=== PATIENT | female | born 1965 | race African-American/Black ===

== ENCOUNTER 2016-11-13 14:53 | Emergency (ER) | payer MEDICAID, OTHER ==
[~2016-11-13] VITALS: Ht 160 cm; Wt 85.0 kg
[2016-11-13 15:03] VITALS: BP 133/73
[2016-11-13] MEDS ORDERED: MAGNESIUM/ALUMINUM HYDROXIDE/SIMETHICONE 30ML UDC PO STA (17:04)
[2016-11-13] MEDS ORDERED: ONDANSETRON 4MG ODT PO ONE (17:15)
== END 2016-11-13 17:49 | disposition home or self-care (01) ==
LOC: ER 16:25
DX: A08.4 Viral intestinal infection, unspecified (principal)
CPT/HCPCS: 99283; Q0162

== ENCOUNTER 2017-03-08 08:49 | Inpatient (IN) | payer OTHER ==
[~2017-03-08] VITALS: Ht 160 cm; Wt 88.0 kg
[2017-03-08] MEDS ORDERED: LISI10TA5 PO (09:02)
[2017-03-08] MEDS ORDERED: LORAZEPAM 2MG/ML CPJ IV ONE (09:15)
[2017-03-08] MEDS ORDERED: LORAZEPAM 2MG/ML CPJ ONE (09:22)
[2017-03-08] MEDS ORDERED: ACETAMINOPHEN 325MG TABLET PO ONE (09:45)
[2017-03-08 10:13] LABS: BASOPHILS % 0.8 % (0.0-2.0); HEMATOCRIT. 34.7 % (36.0-48.0); HEMOGLOBIN. 11.1 g/dL (12.0-16.0); LYMPHOCYTES % 22.5 % (20.0-50.0); MEAN CORPUSCULAR HEMOGLOBIN 24.8 pg (28.0-32.0); MEAN CORPUSCULAR VOLUME 77.3 fL (81.0-99.0); MEAN PLATELET VOLUME 7.8 fl (7.4-10.4); MONOCYTES % 7.5 % (2.0-8.0); NEUTROPHILS % 64.2 % (40.0-76.0); PLATELET 271 x1000/uL (130-400); RED BLOOD CELL COUNT 4.49 mill/uL (4.2-5.4); RED CELL DISTRIBUTION WIDTH 23.1 % (11.6-14.6)
[2017-03-08 10:22] LABS: HCG SCREEN NEGATIVE
[2017-03-08 10:23] LABS: PROTHROMBIN TIME 10.6 sec (9.4-11.6)
[2017-03-08 10:31] LABS: CARBON DIOXIDE 27 mEq/L (21-32); CHLORIDE 108 mEq/L (98-107); TROPONIN I < 0.02 ng/mL (0.00-0.04)
[2017-03-08] MEDS ORDERED: METOCLOPRAMIDE HCL 10MG/2ML VIAL IV ONE (10:45)
[2017-03-08] MEDS ORDERED: KETOROLAC 30MG/ML VIAL IV ONE (10:45)
[2017-03-08] MEDS ORDERED: PHENYTOIN SODIUM 1,000 MG in SODIUM CHLORIDE 0.9% 100 ML IV ONE ×2 (11:00→12:30)
[2017-03-08 11:36] LABS: PLATELET ESTIMATE NORMAL
[2017-03-08 15:11] VITALS: BP 107/64
[2017-03-08] MEDS ORDERED: FERR-71 PO (15:35)
[2017-03-08] MEDS ORDERED: MULT-1146 PO (15:36)
[2017-03-08] MEDS ORDERED: PHEN-434 PO (15:36)
[2017-03-08] MEDS ORDERED: ONDANSETRON HCL 4MG/2ML VIAL IV PRN (16:15)
[2017-03-08] MEDS: SODIUM CHLORIDE 0.9% 1,000 ML IV SCH (17:55)
[2017-03-08] MEDS ORDERED: LORAZEPAM 2MG/ML CPJ IV PRN (19:45)
[2017-03-08 20:00] VITALS: BP 113/63
[2017-03-09] VITALS: BP 142/79
[2017-03-09 04:00] VITALS: BP 113/69
[2017-03-09 06:42] LABS: BASOPHILS % 0.9 % (0.0-2.0); HEMATOCRIT. 32.5 % (36.0-48.0); HEMOGLOBIN. 10.3 g/dL (12.0-16.0); LYMPHOCYTES % 39.5 % (20.0-50.0); MEAN CORPUSCULAR HEMOGLOBIN 24.5 pg (28.0-32.0); MEAN CORPUSCULAR VOLUME 77.3 fL (81.0-99.0); MEAN PLATELET VOLUME 8.4 fl (7.4-10.4); MONOCYTES % 10.2 % (2.0-8.0); NEUTROPHILS % 44.4 % (40.0-76.0); PLATELET 253 x1000/uL (130-400); RED CELL DISTRIBUTION WIDTH 22.3 % (11.6-14.6)
[2017-03-09 07:52] LABS: CARBON DIOXIDE 26 mEq/L (21-32); CHLORIDE 107 mEq/L (98-107)
[2017-03-09 07:59] VITALS: BP 113/77
[2017-03-09 09:10] LABS: *AMPHETAMINES SCREEN URINE NEGATIVE (NEGATIVE); *BARBITURATES SCREEN URINE NEGATIVE (NEGATIVE); *BENZODIAZEPINES SCREEN URINE NEGATIVE (NEGATIVE); *COCAINE SCREEN URINE NEGATIVE (NEGATIVE); CANNABINOID URINE SCREEN PRESUMTIVE POSITIVE (NEGATIVE); METHADONE URINE SCREEN NEGATIVE (NEGATIVE); OPIATES URINE SCREEN NEGATIVE (NEGATIVE); PHENCYCLIDINE URINE SCREEN NEGATIVE (NEGATIVE)
[2017-03-09] MEDS ORDERED: PHENYTOIN SODIUM 700 MG in SODIUM CHLORIDE 0.9% 100 ML IV NR (11:00)
[2017-03-09 12:14] VITALS: BP 117/66
[2017-03-09] MEDS: SODIUM CHLORIDE 0.9% 1,000 ML IV SCH (12:30)
[2017-03-09 16:30] VITALS: BP 112/64
[2017-03-09 20:00] VITALS: BP 117/74
[2017-03-10] VITALS: BP 120/70
[2017-03-10] MEDS ORDERED: ACETAMINOPHEN 325MG TABLET PO PRN (01:45)
[2017-03-10] MEDS ORDERED: MORPHINE SULFATE 4 MG/ML CPJ (NOT FOR IM USE) IV PRN (01:45)
[2017-03-10] MEDS: HYDROCODONE/ACETAMINOPHEN 5/325MG TABLET PO PRN ×3 (02:00→22:30)
[2017-03-10 04:00] VITALS: BP 100/54
[2017-03-10 08:00] VITALS: BP 100/62
[2017-03-10] MEDS: SODIUM CHLORIDE 0.9% 1,000 ML IV SCH (09:20)
[2017-03-10] MEDS ORDERED: GADOBENATE DIMEGLUMINE 529 MG/ML 10ML IV ONE (11:47)
[2017-03-10 12:00] VITALS: BP 110/71
[2017-03-10 16:00] VITALS: BP 115/71
[2017-03-10 20:00] VITALS: BP 114/54
[2017-03-10] MEDS ORDERED: PHENYTOIN SODIUM EXTENDED 100MG CAPSULE PO SCH (21:00)
[2017-03-11] VITALS: BP 114/54
[2017-03-11 04:00] VITALS: BP 106/66
[2017-03-11 08:00] VITALS: BP 143/77
[2017-03-11] MEDS: HYDROCODONE/ACETAMINOPHEN 5/325MG TABLET PO PRN (08:02)
[2017-03-11 09:23] VITALS: BP 143/77
[2017-03-11] MEDS ORDERED: IOHEXOL-350 100 ML BOTTLE ONE (11:27)
[2017-03-11] MEDS ORDERED: SODIUM CHLORIDE 0.9% 10ML VIAL ONE (11:27)
[2017-03-11 12:00] VITALS: BP 112/58
== END 2017-03-11 16:35 | disposition home or self-care (01) | DRG 53 ==
LOC: ER 08:49 → 5WST 11:36 → ENRESERV 13:27 → CANRESERV 13:27 → ENRESERV 13:45 → SUPCPDRO 16:08
PROVIDERS: ADMIT Family Medicine Adult Medicine; ATTEND Family Medicine Adult Medicine
DX: G40.802 Other epilepsy, not intractable, without status epilepticus (principal); G93.6 Cerebral edema; I10 Essential (primary) hypertension; D64.9 Anemia, unspecified; F12.90 Cannabis use, unspecified, uncomplicated; H53.40 Unspecified visual field defects; G93.9 Disorder of brain, unspecified; Z91.14 Patient's other noncompliance with medication regimen; Z91.19 Patient's noncompliance with other medical treatment and regimen; Z86.73 Personal history of transient ischemic attack (TIA), and cerebral infarction without residual deficits; Z79.899 Other long term (current) drug therapy; Z72.89 Other problems related to lifestyle; E83.51 Hypocalcemia
CPT/HCPCS: 36415; 70450; 70496; 70551; 70552; 71010; 80053; 80185; 80305; 83880; 84484; 84703; 85025; 85610; 93005; 96365; 96375; 99285; A4216; A9577; G0482; J1165; J1885; J2060; J2405; J2765; J7030; J7050; Q9967

== ENCOUNTER 2017-07-10 19:44 | Emergency (ER) | payer MEDICAID, OTHER ==
[~2017-07-10] VITALS: Ht 172.7 cm; Wt 100.0 kg
[~2017-07-10 19:44] MED LIST: FERR-71 PO; LISI10TA5 PO; MULT-1146 PO
[2017-07-10] MEDS ORDERED: SODIUM CHLORIDE 0.9% 1,000 ML IV ONE (20:24)
[2017-07-10] MEDS ORDERED: LORAZEPAM 1MG TABLET PO ONE (20:30)
[2017-07-10 20:45] LABS: EOSINOPHILS % 2.9 % (0.0-5.0); HEMATOCRIT. 36.1 % (36.0-48.0); HEMOGLOBIN. 11.6 g/dL (12.0-16.0); LYMPHOCYTES % 40.1 % (20.0-50.0); MEAN CORPUSCULAR HEMOGLOBIN 28.2 pg (28.0-32.0); MEAN CORPUSCULAR VOLUME 88.1 fL (81.0-99.0); MEAN PLATELET VOLUME 7.9 fl (7.4-10.4); PLATELET 287 x1000/uL (130-400); RED CELL DISTRIBUTION WIDTH 15.6 % (11.6-14.6)
[2017-07-10 20:50] LABS: PROTHROMBIN TIME 10.6 sec (9.4-11.6)
[2017-07-10 20:57] LABS: CARBON DIOXIDE 26 mEq/L (21-32); CHLORIDE 108 mEq/L (98-107); ETHANOL BLOOD < 10 mg/dL
[2017-07-10 21:07] LABS: CLARITY URINE TURBID (CLEAR); COLOR URINE RED (YELLOW); KETONES URINE NEGATIVE (NEGATIVE); LEUKOCYTE ESTERASE URINE 2+ (NEGATIVE); NITRITE URINE POSITIVE (NEGATIVE); OCCULT BLOOD URINE 3+ (NEGATIVE); PH URINE 6.5 (4.5-8.0); PROTEIN URINE 2+ (NEGATIVE); SPECIFIC GRAVITY URINE 1.024 (1.005-1.030); UROBILINOGEN URINE 0.2 E.U./dL (0.2-1.0)
[2017-07-10 21:31] LABS: *AMPHETAMINES SCREEN URINE NEGATIVE (NEGATIVE); *BARBITURATES SCREEN URINE NEGATIVE (NEGATIVE); *BENZODIAZEPINES SCREEN URINE NEGATIVE (NEGATIVE); *COCAINE SCREEN URINE NEGATIVE (NEGATIVE); CANNABINOID URINE SCREEN PRESUMTIVE POSITIVE (NEGATIVE); METHADONE URINE SCREEN NEGATIVE (NEGATIVE); OPIATES URINE SCREEN NEGATIVE (NEGATIVE); PHENCYCLIDINE URINE SCREEN NEGATIVE (NEGATIVE)
[2017-07-10] MEDS ORDERED: CEFTRIAXONE 1 G PREMIX 50 ML IV ONE (23:15)
[2017-07-10] MEDS ORDERED: PHENYTOIN SODIUM 1,000 MG in SODIUM CHLORIDE 0.9% 100 ML IV ONE (23:45)
[2017-07-11 01:58] VITALS: BP 111/63
== END 2017-07-11 01:58 | disposition home or self-care (01) ==
LOC: ER 19:59
DX: N30.00 Acute cystitis without hematuria (principal); R51 Headache; I10 Essential (primary) hypertension; F12.10 Cannabis abuse, uncomplicated; G40.909 Epilepsy, unspecified, not intractable, without status epilepticus; Z86.73 Personal history of transient ischemic attack (TIA), and cerebral infarction without residual deficits
CPT/HCPCS: 36415; 70450; 80053; 80185; 80305; 81001; 85025; 85610; 87077; 87086; 96361; 96365; 96367; 99285; G0482; J0696; J1165; J7030; J7050

== ENCOUNTER 2017-08-28 13:01 | Emergency (ER) | payer MEDICAID, OTHER ==
[~2017-08-28] VITALS: Ht 167.6 cm; Wt 79.0 kg
[2017-08-28] MEDS ORDERED: PHEN100C4 PO (13:08)
[2017-08-28 17:41] VITALS: BP 165/93
== END 2017-08-28 19:07 | disposition home or self-care (01) ==
LOC: ER 14:51
DX: M25.561 Pain in right knee (principal); R51 Headache; G40.909 Epilepsy, unspecified, not intractable, without status epilepticus; Z98.890 Other specified postprocedural states
CPT/HCPCS: 99282

== ENCOUNTER 2017-10-11 16:51 | Emergency (ER) | payer OTHER ==
[~2017-10-11] VITALS: Ht 167.6 cm; Wt 80.0 kg
[~2017-10-11 16:51] MED LIST changes: +PHEN100C4 PO
[2017-10-11 18:58] LABS: BASOPHILS % 0.4 % (0.0-2.0); EOSINOPHILS % 1.2 % (0.0-5.0); HEMATOCRIT. 34.6 % (36.0-48.0); HEMOGLOBIN. 11.2 g/dL (12.0-16.0); LYMPHOCYTES % 18.5 % (20.0-50.0); MEAN CORPUSCULAR HEMOGLOBIN 27.6 pg (28.0-32.0); MEAN CORPUSCULAR VOLUME 85.3 fL (81.0-99.0); MEAN PLATELET VOLUME 8.3 fl (7.4-10.4); MONOCYTES % 7.4 % (2.0-8.0); NEUTROPHILS % 72.5 % (40.0-76.0); PLATELET 298 x1000/uL (130-400); RED BLOOD CELL COUNT 4.05 mill/uL (4.2-5.4)
[2017-10-11 19:00] LABS: CHLORIDE 110 mEq/L (98-107)
[2017-10-11 19:04] LABS: AMMONIA 63 uMol/L (<32); ETHANOL BLOOD < 10 mg/dL
[2017-10-11 20:18] LABS: CLARITY URINE CLEAR (CLEAR); COLOR URINE PALE YELLOW (YELLOW); KETONES URINE NEGATIVE (NEGATIVE); LEUKOCYTE ESTERASE URINE NEGATIVE (NEGATIVE); NITRITE URINE NEGATIVE (NEGATIVE); OCCULT BLOOD URINE NEGATIVE (NEGATIVE); PH URINE 5.5 (4.5-8.0); PROTEIN URINE NEGATIVE (NEGATIVE); UROBILINOGEN URINE 0.2 E.U./dL (0.2-1.0)
[2017-10-11 20:23] LABS: *AMPHETAMINES SCREEN URINE NEGATIVE (NEGATIVE); *BARBITURATES SCREEN URINE NEGATIVE (NEGATIVE); *BENZODIAZEPINES SCREEN URINE NEGATIVE (NEGATIVE); *COCAINE SCREEN URINE NEGATIVE (NEGATIVE); METHADONE URINE SCREEN NEGATIVE (NEGATIVE)
[2017-10-11 20:24] LABS: CANNABINOID URINE SCREEN PRESUMTIVE POSITIVE (NEGATIVE); OPIATES URINE SCREEN NEGATIVE (NEGATIVE); PHENCYCLIDINE URINE SCREEN NEGATIVE (NEGATIVE)
[2017-10-11 21:00] LABS: BG BASE EXCESS -3.6 mmol/L (-2.0-2.0); BG BILEVEL POS AIRWAY PRESSURE 37; BG CARBOXYHEMOGLOBIN 0.2 % (0.5-1.5); BG DEOXYHEMOGLOBIN 1.1 % (0.0-5.0); BG FRACTION INSPIRED OXYGEN 28; BG HCO3 ACT 22.1 mmol/L (22.0-26.0); BG METHEMOGLOBIN 0.3 % (0.0-1.5); BG OXYGEN SATURATION 98.9 % (92.0-98.5); BG OXYHEMOGLOBIN 98.4 % (94.0-97.0); BG PCO2 42.4 mmHg (35.0-45.0); BG PH 7.335 (7.350-7.450); BG PO2 168.4 mmHg (75.0-100.0); BG SAMPLE SITE RIGHT RADIAL; BG TOTAL HEMOGLOBIN 11.7 g/dL (12.0-18.0); BG VENT MODE NASAL CANNULA
[2017-10-12 02:06] VITALS: BP 129/65
== END 2017-10-12 02:08 | disposition home or self-care (01) ==
LOC: ER 16:51
DX: R56.9 Unspecified convulsions (principal); G93.40 Encephalopathy, unspecified; I10 Essential (primary) hypertension
CPT/HCPCS: 36415; 36600; 70450; 71045; 80053; 80185; 80305; 80307; 80329; 81003; 81025; 82140; 82375; 82805; 85025; 99285; G0482; Z7610

== ENCOUNTER 2018-02-10 07:19 | Emergency (ER) | payer OTHER ==
[~2018-02-10] VITALS: Ht 165.1 cm; Wt 60.0 kg
[~2018-02-10 07:19] MED LIST changes: -LISI10TA5 PO; -PHEN100C4 PO
[2018-02-10] MEDS ORDERED: SODIUM CHLORIDE 0.9% 1,000 ML IV ONE (07:55)
[2018-02-10 08:10] LABS: BASOPHILS % 1.3 % (0.0-2.0); EOSINOPHILS % 2.5 % (0.0-5.0); HEMATOCRIT. 36.1 % (36.0-48.0); HEMOGLOBIN. 11.9 g/dL (12.0-16.0); LYMPHOCYTES % 38.9 % (20.0-50.0); MEAN CORPUSCULAR HEMOGLOBIN 26.8 pg (28.0-32.0); MEAN CORPUSCULAR VOLUME 81.4 fL (81.0-99.0); MEAN PLATELET VOLUME 8.6 fl (7.4-10.4); MONOCYTES % 9.1 % (2.0-8.0); NEUTROPHILS % 48.2 % (40.0-76.0); PLATELET 240 x1000/uL (130-400); RED BLOOD CELL COUNT 4.44 mill/uL (4.2-5.4); RED CELL DISTRIBUTION WIDTH 18.7 % (11.6-14.6)
[2018-02-10 08:16] LABS: CHLORIDE 108 mEq/L (98-107)
[2018-02-10 08:24] LABS: HCG SCREEN NEGATIVE
[2018-02-10] MEDS ORDERED: ONDANSETRON HCL 4MG/2ML VIAL IV ONE (09:15)
[2018-02-10] MEDS ORDERED: PHENYTOIN SODIUM 1,000 MG in SODIUM CHLORIDE 0.9% 100 ML IV ONE (09:15)
[2018-02-10] MEDS ORDERED: ACETAMINOPHEN 325MG TABLET PO ONE (09:15)
[2018-02-10] MEDS ORDERED: PHENYTOIN SODIUM EXTENDED 100MG CAPSULE PO ONE (10:00)
[2018-02-10 11:09] VITALS: BP 135/86
== END 2018-02-10 11:12 | disposition home or self-care (01) ==
LOC: ER 07:19
DX: R56.9 Unspecified convulsions (principal); I10 Essential (primary) hypertension; R89.2 Abnormal level of other drugs, medicaments and biological substances in specimens from other organs, systems and tissues; R51 Headache; Z98.890 Other specified postprocedural states
CPT/HCPCS: 36415; 80053; 80185; 84703; 85025; 96374; 99284; J1165; J2405; J7030; J7050

== ENCOUNTER 2018-02-20 03:07 | Emergency (ER) | payer OTHER ==
[~2018-02-20] VITALS: Ht 167.6 cm; Wt 82.0 kg
[2018-02-20] MEDS ORDERED: ACETAMINOPHEN 500MG TABLET PO ONE (06:30)
[2018-02-20] MEDS ORDERED: ONDANSETRON 4MG ODT PO ONE (06:30)
[2018-02-20 06:46] LABS: CLARITY URINE CLEAR (CLEAR); COLOR URINE YELLOW (YELLOW); KETONES URINE TRACE (NEGATIVE); LEUKOCYTE ESTERASE URINE NEGATIVE (NEGATIVE); NITRITE URINE NEGATIVE (NEGATIVE); OCCULT BLOOD URINE 1+ (NEGATIVE); PH URINE 6.5 (4.5-8.0); PROTEIN URINE NEGATIVE (NEGATIVE); SPECIFIC GRAVITY URINE 1.023 (1.005-1.030); UROBILINOGEN URINE 0.2 E.U./dL (0.2-1.0)
[2018-02-20 06:55] LABS: *AMPHETAMINES SCREEN URINE NEGATIVE (NEGATIVE); *BARBITURATES SCREEN URINE NEGATIVE (NEGATIVE); *BENZODIAZEPINES SCREEN URINE NEGATIVE (NEGATIVE); *COCAINE SCREEN URINE NEGATIVE (NEGATIVE); METHADONE URINE SCREEN NEGATIVE (NEGATIVE); OPIATES URINE SCREEN NEGATIVE (NEGATIVE)
[2018-02-20 06:56] LABS: CANNABINOID URINE SCREEN PRESUMTIVE POSITIVE (NEGATIVE); PHENCYCLIDINE URINE SCREEN NEGATIVE (NEGATIVE)
[2018-02-20 07:48] LABS: BASOPHILS % 0.2 % (0.0-2.0); HEMATOCRIT. 38.3 % (36.0-48.0); HEMOGLOBIN. 12.4 g/dL (12.0-16.0); MEAN CORPUSCULAR HEMOGLOBIN 26.3 pg (28.0-32.0); MEAN CORPUSCULAR VOLUME 81.4 fL (81.0-99.0); MEAN PLATELET VOLUME 8.2 fl (7.4-10.4); MONOCYTES % 7.9 % (2.0-8.0); NEUTROPHILS % 80.9 % (40.0-76.0); PLATELET 254 x1000/uL (130-400); RED BLOOD CELL COUNT 4.71 mill/uL (4.2-5.4); RED CELL DISTRIBUTION WIDTH 18.5 % (11.6-14.6)
[2018-02-20 07:52] LABS: CHLORIDE 105 mEq/L (98-107)
[2018-02-20 07:58] LABS: ETHANOL BLOOD < 10 mg/dL
[2018-02-20] MEDS ORDERED: PHENYTOIN SODIUM EXTENDED 100MG CAPSULE PO ONE (08:30)
[2018-02-20] MEDS ORDERED: MECLIZINE 25MG TABLET PO ONE (08:30)
[2018-02-20] MEDS ORDERED: KETOROLAC 60MG/2ML VIAL IM ONE (09:00)
[2018-02-20 09:10] VITALS: BP 131/76
== END 2018-02-20 09:26 | disposition home or self-care (01) ==
LOC: ER 03:07
DX: R51 Headache (principal); G40.909 Epilepsy, unspecified, not intractable, without status epilepticus; I10 Essential (primary) hypertension; F43.9 Reaction to severe stress, unspecified; F12.90 Cannabis use, unspecified, uncomplicated; F10.21 Alcohol dependence, in remission; Z79.899 Other long term (current) drug therapy
CPT/HCPCS: 36415; 80053; 80185; 80305; 81003; 81025; 85025; 96372; 99284; G0482; J1885; Q0162; Z7610; J8597

== ENCOUNTER 2018-05-06 08:31 | Emergency (ER) | payer MEDICAID, OTHER ==
[~2018-05-06] VITALS: Ht 160 cm; Wt 82.0 kg
[2018-05-06] MEDS ORDERED: PHENYTOIN SODIUM EXTENDED 100MG CAPSULE PO ONE (11:30)
[2018-05-06] MEDS ORDERED: PROCHLORPERAZINE 10MG/2ML VIAL IV ONE (11:45)
[2018-05-06] MEDS ORDERED: DIPHENHYDRAMINE 50MG/ML VIAL IV ONE (11:45)
[2018-05-06 12:16] LABS: BASOPHILS % 0.7 % (0.0-2.0); EOSINOPHILS % 1.3 % (0.0-5.0); HEMATOCRIT. 35.7 % (36.0-48.0); HEMOGLOBIN. 11.7 g/dL (12.0-16.0); LYMPHOCYTES % 37.6 % (20.0-50.0); MEAN CORPUSCULAR VOLUME 85.3 fL (81.0-99.0); MEAN PLATELET VOLUME 8.9 fl (7.4-10.4); MONOCYTES % 8.2 % (2.0-8.0); NEUTROPHILS % 52.2 % (40.0-76.0); PLATELET 280 x1000/uL (130-400); RED BLOOD CELL COUNT 4.18 mill/uL (4.2-5.4)
[2018-05-06 12:21] LABS: CHLORIDE 106 mEq/L (98-107)
[2018-05-06 12:22] LABS: CLARITY URINE CLEAR (CLEAR); COLOR URINE YELLOW (YELLOW); KETONES URINE TRACE (NEGATIVE); LEUKOCYTE ESTERASE URINE NEGATIVE (NEGATIVE); NITRITE URINE NEGATIVE (NEGATIVE); OCCULT BLOOD URINE NEGATIVE (NEGATIVE); PH URINE 5.5 (4.5-8.0); PROTEIN URINE NEGATIVE (NEGATIVE); SPECIFIC GRAVITY URINE 1.013 (1.005-1.030); UROBILINOGEN URINE 0.2 E.U./dL (0.2-1.0)
[2018-05-06 12:25] LABS: ETHANOL BLOOD < 10 mg/dL
[2018-05-06 13:30] LABS: *AMPHETAMINES SCREEN URINE NEGATIVE (NEGATIVE); *BARBITURATES SCREEN URINE NEGATIVE (NEGATIVE); CANNABINOID URINE SCREEN PRESUMTIVE POSITIVE (NEGATIVE)
[2018-05-06 13:31] LABS: *BENZODIAZEPINES SCREEN URINE NEGATIVE (NEGATIVE); METHADONE URINE SCREEN NEGATIVE (NEGATIVE); OPIATES URINE SCREEN NEGATIVE (NEGATIVE); PHENCYCLIDINE URINE SCREEN NEGATIVE (NEGATIVE)
[2018-05-06 13:39] LABS: *COCAINE SCREEN URINE NEGATIVE (NEGATIVE)
[2018-05-06 15:17] VITALS: BP 106/66
== END 2018-05-06 15:20 | disposition home or self-care (01) ==
LOC: ER 12:14
DX: G40.909 Epilepsy, unspecified, not intractable, without status epilepticus (principal); F41.9 Anxiety disorder, unspecified; I10 Essential (primary) hypertension; G43.909 Migraine, unspecified, not intractable, without status migrainosus; Z98.890 Other specified postprocedural states
CPT/HCPCS: 36415; 80053; 80185; 80305; 81003; 85025; 96374; 96375; 99283; G0482; J0780; J1200

== ENCOUNTER 2018-08-17 20:51 | Emergency (ER) | payer MEDICAID, OTHER ==
[~2018-08-17] VITALS: Ht 160 cm; Wt 83.0 kg
[2018-08-17] MEDS ORDERED: SODIUM CHLORIDE 0.9% 1,000 ML IV ONE (22:09)
[2018-08-17] MEDS ORDERED: LEVETIRACETAM 1000MG/100ML 100 ML IV ONE (22:15)
[2018-08-17 22:49] LABS: CLARITY URINE CLEAR (CLEAR); COLOR URINE YELLOW (YELLOW); KETONES URINE TRACE (NEGATIVE); LEUKOCYTE ESTERASE URINE NEGATIVE (NEGATIVE); NITRITE URINE NEGATIVE (NEGATIVE); OCCULT BLOOD URINE NEGATIVE (NEGATIVE); PH URINE 5.5 (4.5-8.0); PROTEIN URINE NEGATIVE (NEGATIVE); SPECIFIC GRAVITY URINE 1.009 (1.005-1.030); UROBILINOGEN URINE 0.2 E.U./dL (0.2-1.0)
[2018-08-17 23:00] LABS: BASOPHILS % 0.7 % (0.0-2.0); EOSINOPHILS % 0.3 % (0.0-5.0); HEMATOCRIT. 37.6 % (36.0-48.0); HEMOGLOBIN. 12.2 g/dL (12.0-16.0); LYMPHOCYTES % 23.5 % (20.0-50.0); MEAN CORPUSCULAR HEMOGLOBIN 27.3 pg (28.0-32.0); MEAN CORPUSCULAR VOLUME 84.1 fL (81.0-99.0); MEAN PLATELET VOLUME 8.2 fl (7.4-10.4); MONOCYTES % 9.8 % (2.0-8.0); NEUTROPHILS % 65.7 % (40.0-76.0); PLATELET 251 x1000/uL (130-400); RED BLOOD CELL COUNT 4.47 mill/uL (4.2-5.4); RED CELL DISTRIBUTION WIDTH 16.4 % (11.6-14.6)
[2018-08-17 23:00] LABS: *BARBITURATES SCREEN URINE NEGATIVE (NEGATIVE); *BENZODIAZEPINES SCREEN URINE NEGATIVE (NEGATIVE); *COCAINE SCREEN URINE NEGATIVE (NEGATIVE)
[2018-08-17 23:01] LABS: *AMPHETAMINES SCREEN URINE NEGATIVE (NEGATIVE); CANNABINOID URINE SCREEN PRESUMTIVE POSITIVE (NEGATIVE); METHADONE URINE SCREEN NEGATIVE (NEGATIVE); OPIATES URINE SCREEN NEGATIVE (NEGATIVE); PHENCYCLIDINE URINE SCREEN NEGATIVE (NEGATIVE)
[2018-08-17 23:03] LABS: CHLORIDE 107 mEq/L (98-107)
[2018-08-17 23:08] LABS: ETHANOL BLOOD < 10 mg/dL
[2018-08-18] MEDS ORDERED: KETOROLAC 30MG/ML VIAL IV NR (00:45)
[2018-08-18 02:47] VITALS: BP 102/56
== END 2018-08-18 02:50 | disposition home or self-care (01) ==
LOC: ER 20:51
DX: G40.909 Epilepsy, unspecified, not intractable, without status epilepticus (principal); R51 Headache; F12.10 Cannabis abuse, uncomplicated; Z98.890 Other specified postprocedural states
CPT/HCPCS: 36415; 80053; 80305; 80320; 81003; 81025; 85025; 96365; 96366; 96375; 99283; J1885; J1953; J7030; Z7610; G0480

== ENCOUNTER 2018-09-28 09:40 | Emergency (ER) | payer MEDICAID ==
[~2018-09-28] VITALS: Ht 167.6 cm; Wt 91.0 kg
[2018-09-28] MEDS ORDERED: PHENYTOIN SODIUM 100MG/2ML VIAL IV ONE (10:45)
[2018-09-28] MEDS ORDERED: KETOROLAC 30MG/ML VIAL IV ONE (10:45)
[2018-09-28] MEDS ORDERED: PHENYTOIN SODIUM 500MG in SODIUM CHLORIDE 0.9% 50ML IV NR (11:15)
[2018-09-28 11:56] LABS: BASOPHILS % 0.8 % (0.0-2.0); EOSINOPHILS % 0.6 % (0.0-5.0); HEMATOCRIT. 38.2 % (36.0-48.0); HEMOGLOBIN. 12.2 g/dL (12.0-16.0); MEAN CORPUSCULAR HEMOGLOBIN 27.5 pg (28.0-32.0); MEAN CORPUSCULAR VOLUME 85.9 fL (81.0-99.0); MEAN PLATELET VOLUME 8.8 fl (7.4-10.4); MONOCYTES % 8.6 % (2.0-8.0); PLATELET 208 x1000/uL (130-400); RED BLOOD CELL COUNT 4.45 mill/uL (4.2-5.4); RED CELL DISTRIBUTION WIDTH 16.3 % (11.6-14.6)
[2018-09-28 12:01] LABS: CHLORIDE 112 mEq/L (98-107)
[2018-09-28 13:36] VITALS: BP 91/48
== END 2018-09-28 14:08 | disposition home or self-care (01) ==
LOC: ER 09:40
DX: G40.909 Epilepsy, unspecified, not intractable, without status epilepticus (principal); F12.10 Cannabis abuse, uncomplicated
CPT/HCPCS: 36415; 80048; 80185; 85025; 96365; 96375; 99283; J1165; J1885

== ENCOUNTER 2019-03-27 07:25 | Emergency (ER) | payer MEDICAID ==
[~2019-03-27] VITALS: Ht 160 cm; Wt 82.0 kg
[2019-03-27] MEDS ORDERED: ACETAMINOPHEN 325MG TABLET PO ONE (08:15)
[2019-03-27] MEDS ORDERED: MECLIZINE 25MG TABLET PO ONE (11:30)
[2019-03-27 11:34] VITALS: BP 135/84
== END 2019-03-27 11:35 | disposition home or self-care (01) ==
LOC: ER 07:42
DX: S09.8XXA Other specified injuries of head, initial encounter (principal); S16.1XXA Strain of muscle, fascia and tendon at neck level, initial encounter; F07.81 Postconcussional syndrome; F12.10 Cannabis abuse, uncomplicated; Z98.890 Other specified postprocedural states; Z79.899 Other long term (current) drug therapy; W20.8XXA Other cause of strike by thrown, projected or falling object, initial encounter; Y93.89 Activity, other specified; Y92.511 Restaurant or cafe as the place of occurrence of the external cause; Y99.8 Other external cause status
CPT/HCPCS: 70450; 72125; 81025; 99284; J8597

== ENCOUNTER 2019-05-31 12:31 | Emergency (ER) | payer MEDICAID ==
[~2019-05-31] VITALS: Ht 167.6 cm; Wt 77.0 kg
[2019-05-31] MEDS ORDERED: SODIUM CHLORIDE 0.9% 1,000 ML IV ONE (14:33)
[2019-05-31] MEDS ORDERED: LEVETIRACETAM 1000MG/100ML 100 ML IV ONE (14:45)
[2019-05-31 15:44] LABS: BASOPHILS % 0.5 % (0.0-2.0); EOSINOPHILS % 0.2 % (0.0-5.0); HEMATOCRIT. 38.6 % (36.0-48.0); HEMOGLOBIN. 12.8 g/dL (12.0-16.0); LYMPHOCYTES % 10.9 % (20.0-50.0); MEAN CORPUSCULAR HEMOGLOBIN 28.9 pg (28.0-32.0); MEAN PLATELET VOLUME 8.7 fl (7.4-10.4); MONOCYTES % 6.7 % (2.0-8.0); NEUTROPHILS % 81.7 % (40.0-76.0); PLATELET 202 x1000/uL (130-400); RED BLOOD CELL COUNT 4.43 mill/uL (4.2-5.4); RED CELL DISTRIBUTION WIDTH 13.8 % (11.6-14.6)
[2019-05-31 15:45] LABS: CHLORIDE 107 mEq/L (98-107)
[2019-05-31 15:50] LABS: ETHANOL BLOOD < 10 mg/dL
[2019-05-31 16:03] LABS: CLARITY URINE CLEAR (CLEAR); COLOR URINE YELLOW (YELLOW); KETONES URINE TRACE (NEGATIVE); LEUKOCYTE ESTERASE URINE 1+ (NEGATIVE); NITRITE URINE POSITIVE (NEGATIVE); OCCULT BLOOD URINE 2+ (NEGATIVE); PROTEIN URINE 1+ (NEGATIVE); SPECIFIC GRAVITY URINE 1.015 (1.005-1.030); UROBILINOGEN URINE 0.2 E.U./dL (0.2-1.0)
[2019-05-31 16:26] LABS: *BARBITURATES SCREEN URINE NEGATIVE (NEGATIVE)
[2019-05-31 16:27] LABS: *AMPHETAMINES SCREEN URINE NEGATIVE (NEGATIVE); *BENZODIAZEPINES SCREEN URINE NEGATIVE (NEGATIVE); *COCAINE SCREEN URINE NEGATIVE (NEGATIVE); CANNABINOID URINE SCREEN PRESUMTIVE POSITIVE (NEGATIVE); METHADONE URINE SCREEN NEGATIVE (NEGATIVE); OPIATES URINE SCREEN NEGATIVE (NEGATIVE); PHENCYCLIDINE URINE SCREEN NEGATIVE (NEGATIVE)
[2019-05-31 17:14] VITALS: BP 134/86
== END 2019-05-31 17:14 | disposition home or self-care (01) ==
LOC: ER 12:31
DX: G40.909 Epilepsy, unspecified, not intractable, without status epilepticus (principal); N39.0 Urinary tract infection, site not specified; F12.10 Cannabis abuse, uncomplicated
CPT/HCPCS: 36415; 80053; 80305; 80320; 81003; 82962; 85025; 93005; 96365; 99284; J1953; J7030; G0480

== ENCOUNTER 2021-07-17 17:42 | Emergency (ER) | payer MEDICAID ==
[~2021-07-17] VITALS: Ht 160 cm; Wt 83.0 kg
[2021-07-17] MEDS ORDERED: IBUPROFEN 400MG TABLET PO ONE (21:15)
[2021-07-17] MEDS ORDERED: TETANUS, DIPHTHERIA, PERTUSSIS VAC/PF 0.5ML (>10YR OLD) IM ONE (21:15)
[2021-07-17 21:23] VITALS: BP 142/91
[2021-07-17] MEDS: ACETAMINOPHEN 325MG TABLET PO ONE ×2 (21:23→21:46)
== END 2021-07-17 21:49 | disposition home or self-care (01) ==
LOC: ER 17:42
DX: R51.9 Headache, unspecified (principal); S80.212A Abrasion, left knee, initial encounter; F12.10 Cannabis abuse, uncomplicated; I10 Essential (primary) hypertension; Z98.890 Other specified postprocedural states; Z86.59 Personal history of other mental and behavioral disorders; X58.XXXA Exposure to other specified factors, initial encounter; Y93.89 Activity, other specified; Y92.89 Other specified places as the place of occurrence of the external cause; Y99.8 Other external cause status
CPT/HCPCS: 90471; 90715; 99283

== ENCOUNTER 2023-07-25 08:57 | Emergency (ER) | payer MEDICARE, MEDICAID ==
[~2023-07-25] VITALS: Ht 160 cm; Wt 81.0 kg
[2023-07-25 09:00] VITALS: O2SAT 100
[2023-07-25] MEDS: ACETAMINOPHEN 325MG TABLET PO NR (10:18)
[2023-07-25] MEDS: KETOROLAC 60MG/2ML VIAL IM ONE (10:28)
[2023-07-25 12:27] VITALS: BP 139/67; PULSE 58; RESP 18
[2023-07-25 12:30] VITALS: TEMP 98
== END 2023-07-25 13:01 | disposition home or self-care (01) ==
LOC: ER 08:57
DX: S42.401A Unspecified fracture of lower end of right humerus, initial encounter for closed fracture (principal); R56.9 Unspecified convulsions; F12.90 Cannabis use, unspecified, uncomplicated; Z98.890 Other specified postprocedural states; W18.39XA Other fall on same level, initial encounter; Y93.89 Activity, other specified; Y92.89 Other specified places as the place of occurrence of the external cause; Y99.8 Other external cause status
CPT/HCPCS: 99284; 29105; 73060; 73080; 73090; J1885; A4565

== ENCOUNTER 2024-09-26 10:04 | Emergency (ER) | payer MEDICARE, OTHER ==
[~2024-09-26] VITALS: Ht 160 cm; Wt 80.0 kg
[2024-09-26 10:07] VITALS: O2SAT 96
[2024-09-26] MEDS ORDERED: NAPR-681 MT (10:57)
[2024-09-26] MEDS: KETOROLAC 15MG/ML VIAL IM ONE (11:04)
[2024-09-26] MEDS: ACETAMINOPHEN 325MG TABLET PO ONE (11:04)
[2024-09-26 11:11] VITALS: BP 131/75; PULSE 54; RESP 20; TEMP 36.7; O2SAT 100
== END 2024-09-26 11:17 | disposition home or self-care (01) ==
LOC: ER 10:04
DX: M75.22 Bicipital tendinitis, left shoulder (principal); G40.909 Epilepsy, unspecified, not intractable, without status epilepticus; F12.90 Cannabis use, unspecified, uncomplicated; Z79.899 Other long term (current) drug therapy; Z98.890 Other specified postprocedural states
CPT/HCPCS: 99283; 96372; J1885

== ENCOUNTER 2024-10-28 10:35 | Emergency (ER) | payer MEDICARE, OTHER ==
[~2024-10-28] VITALS: Ht 167.6 cm; Wt 84.0 kg
[~2024-10-28 10:35] MED LIST changes: +NAPR-681 MT
[2024-10-28 10:50] VITALS: O2SAT 98
[2024-10-28 11:49] LABS: CLARITY URINE CLEAR (CLEAR); COLOR URINE YELLOW (YELLOW); GLUCOSE URINE NEGATIVE (NEGATIVE); KETONES URINE NEGATIVE (NEGATIVE); LEUKOCYTE ESTERASE URINE NEGATIVE (NEGATIVE); NITRITE URINE NEGATIVE (NEGATIVE); OCCULT BLOOD URINE NEGATIVE (NEGATIVE); PH URINE 6.5 (4.5-8.0); PROTEIN URINE NEGATIVE (NEGATIVE); SPECIFIC GRAVITY URINE 1.005 (1.005-1.030); UROBILINOGEN URINE 0.2 E.U./dL (0.2-1.0)
[2024-10-28] MEDS: ONDANSETRON HCL 4MG/2ML INJ IV STA (11:52)
[2024-10-28] MEDS: SODIUM CHLORIDE 0.9% 1,000 ML IV ONE (12:00)
[2024-10-28] MEDS: ONDANSETRON 4MG ODT PO ONE (13:06)
[2024-10-28 13:17] LABS: EOSINOPHILS % 3.6 % (0.0-5.0); HEMATOCRIT. 35.5 % (36.0-48.0); HEMOGLOBIN. 11.7 g/dL (12.0-16.0); LYMPHOCYTES % 39.4 % (20.0-50.0); MEAN CORPUSCULAR HEMOGLOBIN 27.9 pg (28.0-32.0); MEAN CORPUSCULAR HGB CONC 32.9 g/dL (31.0-37.0); MEAN CORPUSCULAR VOLUME 84.7 fL (81.0-99.0); MEAN PLATELET VOLUME 8.5 fl (7.4-10.4); MONOCYTES % 7.8 % (2.0-8.0); NEUTROPHILS % 48.2 % (40.0-76.0); PLATELET 202 x1000/uL (130-400); RED BLOOD CELL COUNT 4.19 mill/uL (4.2-5.4); RED CELL DISTRIBUTION WIDTH 14.1 % (11.6-14.6); WHITE BLOOD COUNT 3.4 x1000/uL (4.5-11.0)
[2024-10-28 13:26] LABS: CHLORIDE 108 mEq/L (98-107); POTASSIUM 3.6 mEq/L (3.5-5.1); SODIUM 145 mEq/L (136-145)
[2024-10-28 13:27] LABS: CARBON DIOXIDE 28 mEq/L (21-32)
[2024-10-28 13:28] LABS: CALCIUM 9.2 mg/dL (8.7-10.4)
[2024-10-28 13:30] LABS: PROTHROMBIN TIME 10.7 sec (9.6-11.0)
[2024-10-28 13:32] LABS: CREATININE 0.6 mg/dL (0.6-1.0)
[2024-10-28 13:33] LABS: GLUCOSE 87 mg/dL (70-105); UREA NITROGEN BLOOD 6 mg/dL (9-23)
[2024-10-28 13:34] LABS: ALANINE AMINOTRANSFERASE 11 IU/L (10-49); ALBUMIN 4.4 g/dL (3.2-4.8); ASPARTATE AMINOTRANSFERASE 14 IU/L (<34)
[2024-10-28 13:35] LABS: BILIRUBIN DIRECT < 0.1 mg/dL (<=3.0); BILIRUBIN TOTAL 0.3 mg/dL (0.1-1.0); PROTEIN TOTAL 7.1 g/dL (6.0-8.3)
[2024-10-28] MEDS ORDERED: FAMO-135 MT (16:16)
[2024-10-28] MEDS ORDERED: ONDA-241 MT (16:16)
[2024-10-28 17:00] VITALS: BP 157/86; PULSE 60; RESP 18; TEMP 36.8; O2SAT 99
== END 2024-10-28 17:01 | disposition home or self-care (01) ==
LOC: ER 10:35
DX: R10.9 Unspecified abdominal pain (principal); R11.2 Nausea with vomiting, unspecified; Z79.1 Long term (current) use of non-steroidal anti-inflammatories (NSAID); Z79.899 Other long term (current) drug therapy
CPT/HCPCS: 99284; 76705; 80076; 80048; 81003; 83690; 85025; 85610; 36415; Q0162; J7030